=== PATIENT | female | born 1965 | race Caucasian/White ===

== ENCOUNTER 2022-02-20 09:56 | Day surgery (SDC) | payer BC ==
[2022-02-19 09:12] VITALS: BMI 34.7
[~2022-02-20 09:56] MED LIST: Bupivacaine PF 0.5% 30 ML VIAL ONE; Neomycin-Polymyxin 1 ML AMP ONE
[2022-02-20] MEDS ORDERED: CEFAZOLIN 2 GM VIAL ONE (11:43)
[2022-02-20] MEDS ORDERED: Lidocaine 1% PF 5 ML VIAL ONE (11:50)
[2022-02-20] MEDS ORDERED: Fentanyl 100 MCG/2 ML VIAL ONE (11:50)
[2022-02-20] MEDS ORDERED: Ondansetron PF 4 MG/2 ML Vial ONE (11:50)
[2022-02-20] MEDS ORDERED: PROPOFOL 20 ML ONE (11:50)
[2022-02-20] MEDS ORDERED: Fentanyl 250 MCG/5 ML VIAL ONE (12:10)
[2022-02-20] MEDS ORDERED: Dexamethasone 4 mg/ml Vial ONE (12:10)
[2022-02-20] MEDS ORDERED: ePHEDrine Sulfate 50 MG/10 ML VIAL ONE (12:38)
[2022-02-20] MEDS ORDERED: HYDROcodone/Acetaminophen 5/325 mg Tablet ONE (14:43)
== END 2022-02-20 15:10 | disposition home or self-care (01) ==
LOC: CSHSDC 09:56
PROVIDERS: ATTEND Podiatrist Foot & Ankle Surgery
PROC: 0QSP04Z Reposition Left Metatarsal with Internal Fixation Device, Open Approach (ICD-10-PCS; principal; 2022-02-20)
PROC: 0QBQ0ZZ Excision of Right Toe Phalanx, Open Approach (ICD-10-PCS; principal; 2022-02-20)
DX: M20.12 Hallux valgus (acquired), left foot (principal); M20.42 Other hammer toe(s) (acquired), left foot; M77.42 Metatarsalgia, left foot; Z79.899 Other long term (current) drug therapy; Z88.2 Allergy status to sulfonamides; Z20.822 Contact with and (suspected) exposure to COVID-19
CPT/HCPCS: 76000; C1713; C1776; J0690; J1100; J2405; J2704; J3010; S0020